=== PATIENT | male | born 2000 | race Caucasian/White ===

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

== ENCOUNTER 2020-07-05 09:50 | Emergency (ER) | payer BC ==
[~2020-07-05] VITALS: Wt 77.1 kg
[2020-07-05] MEDS ORDERED: ATIVAN1 MG PO (10:18)
== END 2020-07-05 10:28 | disposition home or self-care (01) ==
LOC: ED 09:50
DX: F12.23 Cannabis dependence with withdrawal (principal); F41.9 Anxiety disorder, unspecified; G47.00 Insomnia, unspecified